=== PATIENT | female | born 2000 | race Hispanic/Latino ===

== ENCOUNTER 2023-02-07 12:22 | Emergency (ER) | payer OTHER ==
[2023-02-07] MEDS ORDERED: KETOROLAC 30 MG/ML INJ ONE (12:53)
[2023-02-07 13:00] LABS: Absolute Lymphocytes (CBC) 2.3 K/uL (0.7-4.9); Hematocrit 39.4 % (36.0-45.0); Lymphocytes % 28.1 % (15.3-44.8); MCV 87.7 fL (80-100); MPV 7.9 fL (7.6-11.3)
[2023-02-07 13:17] LABS: BUN Blood Urea Nitrogen 8 mg/dL (7-18); Bicarbonate 25 mEq/L (21-32); Glomerular Filtration Rate 127 ml/min (=/>90); Glucose Level 97 mg/dL (74-106); Potassium 3.6 mEq/L (3.5-5.1); Sodium Level 136 mEq/L (136-145)
[2023-02-07 13:18] LABS: Troponin High Sensitivity < 3.0 pg/mL (<58.9)
--- NOTE | 2023-02-07 13:27 | RAD REPORT ---
EXAM DESCRIPTION: RAD - Chest Single View - 02/07/2023 1:20 pm CLINICAL HISTORY: CHEST PAIN Chest pain. COMPARISON: No comparisons FINDINGS: Portable technique limits examination quality. The lungs are grossly clear. The heart is normal in size. No displaced fractures. IMPRESSION: No acute intrathoracic process suspected.
--- NOTE | 2023-02-07 16:48 | ER ---
Nurse's Notes [facility] Name: Fiorella العراقي Age: 22 yrs Sex: Female : 2000 Arrival Date: 02/07/2023 Time: 12:22 Bed 14 Private MD: Diagnosis: Chest pain, unspecified Presentation: 02/07 12:25 Chief complaint: Patient states: Right sided chest pain, onset 2 hours ago after nj1 "morning walk". Worse with deep breathing. 12:25 Coronavirus screen: Vaccine status: Patient reports being unvaccinated. Ebola Screen: nj Patient denies travel to an Ebola-affected area in the 21 days before illness onset. Initial Sepsis Screen: Does the patient meet any 2 criteria? No. Patient's initial sepsis screen is negative. Does the patient have a suspected source of infection? No. Patient's initial sepsis screen is negative. Risk Assessment: Do you want to hurt yourself or someone else? Patient reports no desire to harm self or others. Onset of symptoms was February 07, 2023 at 10:25. 12:25 Method Of Arrival: Ambulatory [facility] 12:25 Acuity: TANISHA 3 nj1 Historical: - Allergies: 12:32 No Known Allergies; nj1 - PMHx: 12:32 None; nj1 - PSHx: 12:32 None; nj1 - Immunization history:: Client reports having NOT received the Covid vaccine. - Social history:: Smoking status: Patient denies any tobacco usage or history of. Screenin:48 [facility] ED Fall Risk Assessment (Adult) History of falling in the last 3 months, ld1 including since admission No falls in past 3 months (0 pts). Abuse screen: Denies threats or abuse. Denies injuries from another. Nutritional screening: No deficits noted. Tuberculosis screening: No symptoms or risk factors identified. Assessment: 12:48 General: Appears in no apparent distress. comfortable, Behavior is calm, cooperative, ld1 appropriate for age. Pain: Complains of pain in chest Pain does not radiate. Pain currently is 8 out of 10 on a pain scale. Quality of pain is described as throbbing, Pain began 1 hour ago. Is continuous. Neuro: Level of Consciousness is awake, alert, obeys commands, Oriented to person, place, time, situation. Cardiovascular: Capillary refill < 3 seconds Patient's skin is warm and dry. Rhythm is sinus rhythm. Respiratory: Airway is patent Respiratory effort is even, unlabored. GI: Abdomen is flat, non-distended. : No signs and/or symptoms were reported regarding the genitourinary system. EENT: No signs and/or symptoms were reported regarding the EENT system. Derm: No signs and/or symptoms reported regarding the dermatologic system. Musculoskeletal: No signs and/or symptoms reported regarding the musculoskeletal system. 14:47 Reassessment: Patient appears in no apparent distress at this time. No changes from ld1 previously documented assessment. Patient and/or family updated on plan of care and expected duration. Pain level reassessed. Patient is alert, oriented x 3, equal unlabored respirations, skin warm/dry/pink. Vital Signs: 12:25 BP 116 / 77; Pulse 47; Resp 16; Temp 98.7(O); Pulse Ox 100% on R/A; Weight 70.31 kg; nj1 Height 4 ft. 11 in. ; Pain 10/10; 12:48 BP 116 / 77; Pulse 80; Resp 16; Pulse Ox 100% on R/A; Pain 8/10; ld1 13:45 BP 116 / 77; Pulse 76; Resp 18; Pulse Ox 100% on R/A; ld1 14:50 BP 106 / 70; Pulse 71; Resp 18; Pulse Ox 100% on R/A; ld1 16:44 BP 103 / 76; Pulse 72; Resp 18; Pulse Ox 100% on R/A; ld1 12:25 Body Mass Index 31.31 (70.31 kg, 149.86 cm) nj1 12:25 Pain Scale: Adult nj1 12:48 Pain Scale: Adult ld1 ED Course: 12:23 Patient arrived in ED. am2 12:24 Sigifredo Lawrence PA is PHCP. [place] 12:24 Juan Luis Green MD is Attending Physician. [place] 12:32 Triage completed. nj1 12:32 Arm band placed on. nj1 12:45 Jody Blanca, ISELA is Primary Nurse. ld1 12:48 Patient has correct armband on for positive identification. Placed in gown. Bed in low ld1 position. Call light in reach. Side rails up X2. patient monitor on. Pulse ox on. NIBP on. Door closed. Noise minimized. Warm blanket given. 12:48 No provider procedures requiring assistance completed. Inserted saline lock: 20 gauge ld1 in left antecubital area, using aseptic technique. Blood collected. Patient maintains SpO2 saturation greater than 95% on room air. 13:22 XRAY Chest (1 view) In Process Unspecified. EDMS 16:55 IV discontinued, intact, bleeding controlled, No redness/swelling at site. ld1 Administered Medications: 12:52 Drug: Ketorolac IVP 30 mg Route: IVP; Site: left antecubital; ld1 Medication: 12:48 VIS not applicable for this client. ld1 Outcome: 16:48 Discharge ordered by MD. [place] 16:55 Discharged to home ambulatory, with family. ld1 16:55 Condition: stable 16:55 Discharge instructions given to patient, family, Instructed on discharge instructions, follow up and referral plans. medication usage, Demonstrated understanding of instructions, follow-up care, medications, Prescriptions given X 1. 16:55 Patient left the ED. ld1 Signatures: Dispatcher [employer] EDCA Sigifredo Lawrence PA PA jmm Moreno, Amanda am2 Jody Blanca, RN RN ld1 Luna Bunn RN RN nj1
--- NOTE | 2023-02-07 16:49 | EDPHYS ---
Physician Documentation [facility] Name: Fiorella العراقي Age: 22 yrs Sex: Female : 2000 Arrival Date: 02/07/2023 Time: 12:22 Bed 14 Private MD: ED Physician Juan Luis Green HPI: 02/07 12:36 This 22 yrs old Female presents to ER via Ambulatory with complaints of Chest jmm Pain. 12:36 Onset: The symptoms/episode began/occurred gradually. This is a 22 year old female with jmm no chronic medical conditions that presents to the ED with complaints of chest pain, described as sharp beginning today around 10. Denies fever, cough, sob. Pain worsened with deep inspiration and movement. . Historical: - Allergies: 12:32 No Known Allergies; nj1 - PMHx: 12:32 None; nj1 - PSHx: 12:32 None; nj1 - Immunization history:: Client reports having NOT received the Covid vaccine. - Social history:: Smoking status: Patient denies any tobacco usage or history of. ROS: 12:36 Constitutional: Negative for fever, chills, and weight loss. jmm 12:36 Respiratory: Negative for shortness of breath, cough, wheezing, and pleuritic chest pain, Abdomen/GI: Negative for abdominal pain, nausea, vomiting, diarrhea, and constipation. 12:36 Cardiovascular: Positive for chest pain. 12:36 All other systems are negative. Exam: 12:36 Constitutional: This is a well developed, well nourished patient who is awake, alert, jmm and in no acute distress. Head/Face: atraumatic. Eyes: EOMI, no conjunctival erythema appreciated ENT: Moist Mucus Membranes Neck: Trachea midline, Supple 12:36 Cardiovascular: Regular rate and rhythm. No edema appreciated Respiratory: Normal respirations, no respiratory distress appreciated Abdomen/GI: Non distended Skin: General appearance color normal MS/ Extremity: Moves all extremities, no obvious deformities appreciated, no edema noted to the lower extremities Neuro: Awake and alert Psych: Behavior is normal, Mood is normal, Patient is cooperative and pleasant 12:36 Chest/axilla: Inspection: normal, Palpation: tenderness, that is moderate, of the mid-sternal area, that totally reproduces the patient's complaints. Vital Signs: 12:25 BP 116 / 77; Pulse 47; Resp 16; Temp 98.7(O); Pulse Ox 100% on R/A; Weight 70.31 kg; nj1 Height 4 ft. 11 in. ; Pain 10/10; 12:48 BP 116 / 77; Pulse 80; Resp 16; Pulse Ox 100% on R/A; Pain 8/10; ld1 13:45 BP 116 / 77; Pulse 76; Resp 18; Pulse Ox 100% on R/A; ld1 14:50 BP 106 / 70; Pulse 71; Resp 18; Pulse Ox 100% on R/A; ld1 16:44 BP 103 / 76; Pulse 72; Resp 18; Pulse Ox 100% on R/A; ld1 12:25 Body Mass Index 31.31 (70.31 kg, 149.86 cm) nj1 12:25 Pain Scale: Adult nj1 12:48 Pain Scale: Adult ld1 MDM: 12:36 Patient medically screened. alphonse 17:43 Differential diagnosis: acs, pericarditis, pneumonia, pulmonary embolism. Data berto reviewed: vital signs, nurses notes, lab test result(s), EKG, radiologic studies, plain films. I considered the following discharge prescriptions or medication management in the emergency department Medications were administered in the Emergency Department. See MAR. Independent interpretation of the following test(s) in the Emergency Department X-Ray: My interpretation is no pneumonia appreciated. Counseling: I had a detailed discussion with the patient and/or guardian regarding: the historical points, exam findings, and any diagnostic results supporting the discharge/admit diagnosis, lab results, radiology results, the need for outpatient follow up, to return to the emergency department if symptoms worsen or persist or if there are any questions or concerns that arise at home. Response to treatment: the patient's symptoms have markedly improved after treatment, and as a result, I will discharge patient. 02/07 12:36 Order name: Basic Metabolic Panel; Complete Time: 13:19 [facility] 02/07 12:36 Order name: CBC with Diff; Complete Time: 13:10 [facility] 02/07 12:36 Order name: D-Dimer; Complete Time: 13:10 [facility] 02/07 12:36 Order name: Troponin HS; Complete Time: 13:19 [facility] 02/07 15:19 Order name: Troponin High Sensitivity: repeat; Complete Time: 16:47 [facility] 02/07 12:36 Order name: XRAY Chest (1 view); Complete Time: 13:28 [facility] 02/07 12:36 Order name: EKG; Complete Time: 12:36 [facility] 02/07 12:36 Order name: Cardiac monitoring; Complete Time: 12:45 [facility] 02/07 12:36 Order name: EKG - Nurse/Tech; Complete Time: 12:45 [facility] 02/07 12:36 Order name: IV Saline Lock; Complete Time: 12:46 [facility] 02/07 12:36 Order name: Labs collected and sent; Complete Time: 12:46 [facility] 02/07 12:36 Order name: O2 Per Protocol; Complete Time: 12:46 [facility] 02/07 12:36 Order name: O2 Sat Monitoring; Complete Time: 12:46 [facility] Administered Medications: 12:52 Drug: Ketorolac IVP 30 mg Route: IVP; Site: left antecubital; ld1 Disposition Summary: 02/07/23 16:48 Discharge Ordered Location: Home [facility] Condition: Stable [facility] Diagnosis - Chest pain, unspecified [facility] Followup: [facility] - With: Private Physician - When: 2 - 3 days - Reason: Recheck today's complaints, Continuance of care, Re-evaluation by your physician Discharge Instructions: - Discharge Summary Sheet [facility] - Nonspecific Chest Pain, Adult [facility] Forms: - Medication Reconciliation Form [facility] - Thank You Letter [facility] - Antibiotic Education [facility] - Prescription Opioid Use [facility] Prescriptions: - Diclofenac Sodium 75 mg Oral Tablet Sustained Release - take 1 tablet by ORAL route 2 times per day; 30 tablet; Refills: 0, Product [facility] Selection Permitted Signatures: Dispatcher [employer] Sigifredo Ferraro PA PA m Jody Blanca, RN RN ld1 Luna Bunn RN RN nj1
[2023-02-07 17:02] VITALS: TEMP 98.7; O2SAT 100
[2023-02-07 17:09] VITALS: BP 103/76
--- NOTE | 2023-02-08 11:47 | EKG ---
Test Date: 2023-02-07 Test Time: 12:57:21 Turret Lathe Set Up Operator: TOMASAW MEASUREMENT RESULTS: Intervals: Rate: 78 SC: 136 QRSD: 70 QT: 364 QTc: 414 [place]: P: 16 SC: 136 QRS: -1 T: 4 INTERPRETIVE STATEMENTS: Normal sinus rhythm Cannot rule out Anterior infarct, age undetermined Abnormal ECG No previous ECG available for comparison Electronically Signed On 02-08-23 11:44:50 CDT by Tay Stark
--- NOTE | 2023-02-09 11:25 | EKG ---
Test Date: 2023-02-07 Test Time: 12:43:22 Size Stamper: Abhishek SUMNER MEASUREMENT RESULTS: Intervals: Rate: 80 [place]: 130 QRSD: 68 QT: 368 QTc: 424 [place]: P: 21 [place]: 130 QRS: 33 T: 4 INTERPRETIVE STATEMENTS: Normal sinus rhythm Low voltage QRS Borderline ECG No previous ECG available for comparison Electronically Signed On 02-09-23 11:20:39 CDT by Tay Stark
== END 2023-02-07 16:55 | disposition home or self-care (01) ==
LOC: ER 12:22
DX: R07.9 Chest pain, unspecified (principal)
CPT/HCPCS: 36415; 71045; 80048; 84484; 85025; 85379; 93005; 96374; 99285